=== PATIENT | female | born 1970 | race Hispanic/Latino ===

== ENCOUNTER 2022-09-11 16:14 | Emergency (ER) | payer BC ==
[~2022-09-11] VITALS: Ht 157.5 cm; Wt 85.7 kg
[2022-09-11 17:31] LABS: APPEARANCE,URINE CLEAR (CLEAR); BILIRUBIN,URINE NEGATIVE (NEGATIVE); COLOR,URINE LIGHT-YELLOW (YELLOW); GLUCOSE, URINE (UA) NEGATIVE (NEGATIVE); KETONES,URINE NEGATIVE (NEGATIVE); LEUKOCYTE ESTERASE ,URINE 500 Leu/uL (NEGATIVE); NITRATE,URINE NEGATIVE (NEGATIVE); OCCULT BLOOD,URINE NEGATIVE (NEGATIVE); PH,URINE 6.5 (5.0-8.0); PROTEIN,URINE NEGATIVE (NEGATIVE); UROBILINOGEN,URINE 0.2 mg/dL (0.2-1.0)
[2022-09-11 17:35] LABS: HCG,QUALITATIVE URINE NEGATIVE (NEGATIVE)
[2022-09-11 17:36] LABS: BACTERIA,URINE RARE /HPF (None Seen); SQUAMOUS EPITHELIAL CELL,UR FEW /HPF (0-2); WBC,URINE 26-50 /HPF (0-1)
[2022-09-11] MEDS ORDERED: CEFTRIAXONE 1G VIAL ONE (18:04)
[2022-09-11] MEDS ORDERED: CEFTRIAXONE 1G VIAL IVPB SCH (18:30)
[2022-09-11] MEDS ORDERED: NITR100C4 PO (18:37)
[2022-09-11 18:45] VITALS: BP 121/76
== END 2022-09-11 18:48 | disposition home or self-care (01) ==
LOC: EDH 16:14
DX: N39.0 Urinary tract infection, site not specified (principal)
CPT/HCPCS: 99284; 87088; 81001; 81025; 96372; J0696